=== PATIENT | female | born 1950 | race Two or more races ===

== ENCOUNTER 2021-06-22 08:11 | Emergency (ER) | payer OTHER ==
[~2021-06-22] VITALS: Ht 154.9 cm; Wt 50.3 kg
[2021-06-22] MEDS ORDERED: SYNTHROID50 MCG PO (08:43)
[2021-06-22] MEDS ORDERED: LEVO-T25 MCG PO (08:43)
== END 2021-06-22 17:33 | disposition home or self-care (01) ==
LOC: ER 08:11
DX: K57.30 Diverticulosis of large intestine without perforation or abscess without bleeding (principal); R10.84 Generalized abdominal pain; R10.2 Pelvic and perineal pain